=== PATIENT | female | born 1945 | race Caucasian/White ===

== ENCOUNTER 2016-06-16 10:39 | Emergency (ER) | payer MEDICARE, OTHER ==
[2016-06-16] MEDS ORDERED: FEVERALL 650 MG PR STA (10:41)
[2016-06-16] MEDS ORDERED: Sodium Chloride 0.9% 1000 ML 1,000 ML IV STA ×2 (10:41→12:43)
[2016-06-16] MEDS ORDERED: Sodium Chloride 0.9% 1000 ML 1,000 ML ONE ×3 (10:54→14:13)
[2016-06-16] MEDS ORDERED: FEVERALL 650 MG ONE (11:11)
[2016-06-16] MEDS ORDERED: Azactam 1 GM/100 ML D5W 100 ML IV ONE (11:20)
[2016-06-16 11:26] LABS: A-aADO2 98; ARTERIAL BLD GAS O2 SATURATION 97.6 % (95-100); ARTERIAL BLOOD GAS BASE EXCESS -1.4 (-2.0-2.0); ARTERIAL BLOOD GAS FIO2 28 %; ARTERIAL BLOOD GAS PO2 69 mmHg (75-100)
[2016-06-16 11:27] LABS: ALLEN TEST OK? YES
--- NOTE | 2016-06-16 11:28 | ERPHSYRPT ---
- History of Present Illness Source: patient, family (), EMS ([facility] ambulance) Exam Limitations: clinical condition Patient Subjective Stated Complaint: PT BROUGHT IN BY EMS PER EMS THEY WERE CALLED TO SCENE FOR POSSIBLE MEDICATION REACTION STATED THAT WAS RECENLTY WAS PUT ON A CREAM FOR A RASH UNDER HER BREAST PER EMS ON ARRIVAL PT WAS CONFUSED ROOM AIR SAT IN 80'S AND CYANOTIC AROUND THE LIPS. Triage Nursing Assessment: PT PALE CYANTOTIC AROUND THE LIPS PT ORIENTED TO SELF ONLY PT LEFT RECTAL TEMP 107.1 PT EXTREMITIES MOTTLED. DRY MUCUS MEMBRANES NOTED. Physician History: Patient case was discussed with and [facility] ambulance. Patient is intermittently confused and poorly communicating at this time. Patient sought medical provider 2 days ago for infection under her breasts and in the groin area diagnosed as possible yeast and was placed on a cream and anti-infective pills which are assumed to be the Diflucan that we noted. She had a fever at home last night felt poorly which then broke and this morning patient was feeling very warm week and was slightly confused and called EMS at that time with requested transfer to our hospital despite the fact they live only 1 [address] from [facility]. Patient is not known diabetic has a history of previous CABG hypertension and recent findings of carotid vascular disease.emesis 1 this morning with no abdominal pain and did fall on left ankle trying to get out of bed. Timing/Duration: today, day(s) (11,start of infection), worse Associated Symptoms: shortness of breath, diaphoresis, chills, fever, malaise, rash, weakness, other (altered mental status as noted above) Allergies/Adverse Reactions: No Known Drug Allergies Allergy (Unverified 06/16/16 11:09) Home Medications: Aspirin 84 mg PO DAILY 06/16/16 [History] Clonazepam 0.5 mg PO DAILY 06/16/16 [History] Fluconazole 150 mg PO DAILY 06/16/16 [History] Megestrol Acetate 40 mg [Megace 40 MG] 40 mg PO DAILY 06/16/16 [History] Metoprolol Tartrate 50 mg PO DAILY 06/16/16 [History] Oxycodone HCl/Acetaminophen [Percocet 5-325 mg Tablet] 1 ea PO Q4HPRN PRN [History] Pravastatin Sodium 40 mg PO DAILY 06/16/16 [History] Promethazine HCl 25 mg PO UD 06/16/16 [History] Hx Tetanus, Diphtheria Vaccination/Date Given: No (UNKNOWN) - Review of Systems Constitutional: Fever, Chills, Fatigue, Lethargy, Malaise Eyes: No Symptoms Ears, Nose, & Throat: No Symptoms Respiratory: Dyspnea Cardiac: No Symptoms Abdominal/Gastrointestinal: Vomiting (x1 this AM) Genitourinary Symptoms: No Symptoms Musculoskeletal: No Symptoms Skin: Cellulitis, Rash (as noted), Other (as noted HPI) Neurological: Headache, Irritability, Lethargy, Other (as noted) Psychological: No Symptoms Endocrine: No Symptoms Hematologic/Lymphatic: No Symptoms Immunological/Allergic: No Symptoms - Past Medical History Pertinent Past Medical History: Yes Cardiac History: Coronary Artery Disease, High Cholesterol, Hypertension, Myocardial Infarction (MS) Respiratory History: No Pertinent History Endocrine Medical History: No Pertinent History Musculoskeletal History: No Pertinent History GI Medical History: No Pertinent History History: Other (history of left breast cancer status post radiation and lymph node dissection and history of ovarian cancer with one year ago.) Female Reproductive Disorders: Other (as noted above) - Past Surgical History Past Surgical History: Yes Other Surgical History: OPEN HEART SCAR NOTED - Social History Smoking Status: Unknown if ever smoked Drug Use: none Patient Lives Alone: No - Female History Hx Last Menstrual Period: N/A - Nursing Vital Signs Nursing Vital Signs: Initial Vital Signs Temperature 104 F Temperature Source Core Pulse Rate 119 Respiratory Rate 42 Blood Pressure [] 142/93 Pain Intensity 6 - Physical Exam General Appearance: severe distress, obese Eye Exam: PERRL/EOMI Ears, Nose, Throat Exam: pharyngeal erythema, other (DRY) Neck Exam: normal inspection, non-tender, supple, full range of motion Respiratory Exam: diminished breath sounds, prolonged expirations Cardiovascular Exam: regular rate/rhythm, tachycardia, capillary refill <2 sec Gastrointestinal/Abdomen Exam: soft, normal bowel sounds, No tenderness, No distention, No mass, No guarding Pelvic Exam: not done Rectal Exam: deferred Back Exam: normal inspection, normal range of motion, No CVA tenderness Extremity Exam: joint swelling (lEFT ANKLE), tenderness (LEFT ANKLE) Neurologic Exam: disoriented, confusion Skin Exam: rash (marked cellulitis with drainage bilateral memory areas) Lymphatic Exam: No adenopathy, No axilla node tender (L) SpO2 Interpretation: normal SpO2: 96 Oxygen Delivery: Nasal Cannula - Course Nursing assessment & vital signs reviewed: Yes EKG Interpreted by Me: RATE (106), Sinus Tach, Left [place] Deviation, NORMAL INTERVALS, NORMAL QRS, Q-wave (III,aVF,V1), ST Elev (III,aVR), Ischemic ST-T changes (avl,[id number]), Other (ST SEGMENT DEPRESSION DIFFUSE AND ONE LEAD III WITH st SEGMENT ELEVATION NEW COMPARED TO ekg 93112) - Radiology Exams Chest X-ray Interpretation: Reviewed by me, Discussed w/ radiologist (status post sternotomy new cardiomegaly with left effusion an right new basilar infiltrate versus atel) Left Ankle X-ray Interpretation: Reviewed by me, Discussed w/ radiologist, No Fracture, Other (SOFT TISSUE SWELLING) - CT Exams Head CT Interpretation: Discussed w/radiologist, Tele-radiologist Report (LEFT CAUDATE AND INTERNAL CAPSULE REMOTE LACUNAR INFARCTS, NO ACUTE CHANGES) Ordered Tests: Active Orders 24 hr Category Date Time Status Chaitanya Bandage Application -[facility] STAT Care 06/16/16 12:28 Active Civil Engineering Intern STAT Care 06/16/16 10:41 Active Catheter-[place] STAT Care 06/16/16 10:41 Active EKG-ER Only STAT Care 06/16/16 10:55 Active IV Insertion STAT Care 06/16/16 10:41 Active Ice Pack, Apply PRN Care 06/16/16 12:29 Active Oxygen-ED Only NASAL CANNULA 4 lpm Care 06/16/16 10:41 Active Oxygen-ED Only VENTI-MASK 50% Care 06/16/16 14:42 Active Rectal Temperature STAT Care 06/16/16 10:41 Active ANKLE (3 VIEWS) Stat Exams 06/16/16 12:01 Completed CHEST 1 VIEW (PORTABLE) Stat Exams 06/16/16 10:44 Completed HEAD WITHOUT CONTRAST [CT] Stat Exams 06/16/16 12:25 Completed ARTERIAL BLOOD GASES Stat Lab 06/16/16 11:10 Completed BLOOD CULTURE Stat Lab 06/16/16 11:10 Received CBC W DIFF Stat Lab 06/16/16 11:00 Completed CMP Stat Lab 06/16/16 11:00 Completed CULTURE, THROAT Stat Lab 06/16/16 11:05 Received CULTURE,URINE Stat Lab 06/16/16 11:05 Received CULTURE,WOUND Stat Lab 06/16/16 11:05 Received Lactic Acid Urgent Lab 06/16/16 11:10 Completed PROTIME WITH INR Stat Lab 06/16/16 11:33 Completed PTT Stat Lab 06/16/16 11:33 Completed STREP SCREEN-BETA A Stat Lab 06/16/16 11:05 Completed TROPONIN Q3H Lab 06/16/16 11:33 Completed TROPONIN Q3H Lab 06/16/16 14:15 Completed TROPONIN Q3H Lab 06/16/16 17:00 Ordered TROPONIN Q3H Lab 06/16/16 20:00 Ordered TROPONIN Q3H Lab 06/16/16 23:00 Ordered UA W/ MICROSCOPIC Stat Lab 06/16/16 11:05 Completed Medication Summary Discontinued Medications Generic Name Dose Route Start Last Admin Trade Name Freq PRN Reason Stop Dose Admin Acetaminophen 975 mg 06/16/16 10:41 06/16/16 11:16 Feverall 650 Mg AK 06/16/16 10:42 975 mg STAT STA Administration Acetaminophen Confirm 06/16/16 11:11 Feverall 650 Mg Administered 06/16/16 11:12 Dose 1,300 mg .ROUTE .STK-MED ONE Acetaminophen 500 mg 06/16/16 13:29 06/16/16 13:38 Tylenol Extra Strength 500 Mg PO 06/16/16 13:30 500 mg STAT STA Administration Acetaminophen Confirm 06/16/16 13:38 Tylenol Extra Strength 500 Mg Administered 06/16/16 13:39 Dose 500 mg .ROUTE .STK-MED ONE Aspirin 324 mg 06/16/16 12:00 06/16/16 12:17 Baby Aspirin 81 Mg Chew PO 06/16/16 12:01 324 mg STAT ONE Administration Aspirin Confirm 06/16/16 12:11 Baby Aspirin 81 Mg Chew Administered 06/16/16 12:12 Dose 324 mg .ROUTE .STK-MED ONE Fentanyl Citrate 50 mcg 06/16/16 12:00 06/16/16 12:15 Sublimaze 100 Mcg/2 Ml IV 06/16/16 12:01 50 mcg STAT ONE Administration Fentanyl Citrate Confirm 06/16/16 12:13 Sublimaze 100 Mcg/2 Ml Administered 06/16/16 12:14 Dose 100 mcg .ROUTE .STK-MED ONE Hydromorphone HCl 0.5 mg 06/16/16 13:05 06/16/16 13:09 Hydromorphone 1 Mg/Ml Ampule IV 06/16/16 13:06 0.5 mg STAT ONE Administration Hydromorphone HCl Confirm 06/16/16 13:08 Hydromorphone 1 Mg/Ml Ampule Administered 06/16/16 13:09 Dose 1 mg .ROUTE .STK-MED ONE Hydromorphone HCl 0.5 mg 06/16/16 14:23 06/16/16 14:29 Hydromorphone 1 Mg/Ml Ampule IV 06/16/16 14:24 0.5 mg STAT ONE Administration Hydromorphone HCl Confirm 06/16/16 14:26 Hydromorphone 1 Mg/Ml Ampule Administered 06/16/16 14:27 Dose 1 mg .ROUTE .STK-MED ONE Sodium Chloride 1,000 mls @ 999 mls/hr 06/16/16 10:41 06/16/16 11:08 Sodium Chloride 0.9% 1000 Ml IV 06/16/16 11:41 999 mls/hr .Q1H1M STA Administration Sodium Chloride Confirm 06/16/16 10:54 Sodium Chloride 0.9% 1000 Ml Administered 06/16/16 10:55 Dose 1,000 mls @ ud .ROUTE .STK-MED ONE Aztreonam 100 mls @ 100 mls/hr 06/16/16 11:20 06/16/16 12:12 Azactam 1 Gm/100 Ml D5w IV 06/16/16 12:19 100 mls/hr STAT ONE Administration Vancomycin HCl 250 mls @ 250 mls/hr 06/16/16 11:30 06/16/16 12:06 Vancomycin 1gm/ Ns 250ml IV 06/16/16 13:29 250 mls/hr Q1H MITCHEL Administration Vancomycin HCl Confirm 06/16/16 11:44 Vancomycin 1gm/ Ns 250ml Administered 06/16/16 11:45 Dose 250 mls @ ud IV .STK-MED ONE Vancomycin HCl Confirm 06/16/16 12:05 Vancomycin 1gm/ Ns 250ml Administered 06/16/16 12:06 Dose 250 mls @ ud IV .STK-MED ONE Sodium Chloride 1,000 mls @ 999 mls/hr 06/16/16 12:43 06/16/16 13:05 Sodium Chloride 0.9% 1000 Ml IV 06/16/16 13:43 999 mls/hr .Q1H1M STA Administration Sodium Chloride Confirm 06/16/16 12:51 Sodium Chloride 0.9% 1000 Ml Administered 06/16/16 12:52 Dose 1,000 mls @ ud .ROUTE .STK-MED ONE Sodium Chloride 1,000 mls @ 150 mls/hr 06/16/16 14:00 06/16/16 14:24 Sodium Chloride 0.9% 1000 Ml IV 07/16/16 13:59 150 mls/hr .Q6H40M MITCHEL Administration Clindamycin HCl/Dextrose 50 mls @ 100 mls/hr 06/16/16 14:09 06/16/16 14:18 Clindamycin-D5w 900 Mg/50 Ml IV 06/16/16 14:38 100 mls/hr STAT ONE Administration Clindamycin HCl/Dextrose Confirm 06/16/16 14:12 Clindamycin-D5w 900 Mg/50 Ml Administered 06/16/16 14:13 Dose 50 mls @ ud IV .STK-MED ONE Sodium Chloride Confirm 06/16/16 14:13 Sodium Chloride 0.9% 1000 Ml Administered 06/16/16 14:14 Dose 1,000 mls @ ud .ROUTE .STK-MED ONE Oseltamivir Phosphate 75 mg 06/16/16 13:27 06/16/16 13:39 Tamiflu 75mg Capsule PO 06/16/16 13:28 75 mg STAT ONE Administration Oseltamivir Phosphate Confirm 06/16/16 13:36 Tamiflu 75mg Capsule Administered 06/16/16 13:37 Dose 75 mg PO .STK-MED ONE Lab/Rad Data: Laboratory Result Diagrams 06/16/16 11:00 06/16/16 11:00 Laboratory Results 06/16/16 06/16/16 06/16/16 Range/Units 14:15 13:30 11:33 WBC (4.0-10.5) K/mm3 RBC (4.1-5.4) M/mm3 Hgb (12.0-16.0) gm/dl Hct (35-47) % MCV (78-100) fl MCH (26-32) pg MCHC (32-36) g/dl RDW (11.5-14.0) % Plt Count (150-450) K/mm3 MPV (6-9.5) fl Gran % (36.0-66.0) % Lymphocytes % (24.0-44.0) % Monocytes % (0.0-12.0) % Eosinophils % (0.00-5.0) % Basophils % (0.0-0.4) % Basophils # (0-0.4) INR (0.8-3.0) PTT (25.3-37.0) SECONDS Puncture Site pCO2 (35-45) mmHg pO2 (75-100) mmHg Base Excess (-2.0-2.0) O2 Saturation (94-100) g/dF ABG pH (7.35-7.45) ABG HCO3 (22-28) ABG O2 Sat (Measured) (95-100) % [place] Test A-a Gradient a/A Ratio Hemoglobin Carboxyhemoglobin (0.0-6.9) % THgb Methemoglobin (1.4-1.5) % Temperature C POC O2 Flow Rate % Sodium (136-145) mEq/L Potassium (3.5-5.1) mEq/L Chloride (98-107) mEq/L Carbon Dioxide (21-32) mEq/L Anion Gap (5-15) MEQ/L BUN (9-20) mg/dL Creatinine (0.55-1.30) mg/dl Estimated GFR ML/MIN Glucose (70-110) MG/DL Lactic Acid (0.4-2.0) Calcium (8.5-10.1) mg/dL Total Bilirubin (0.2-1.0) mg/dL AST (15-37) U/L ALT (12-78) U/L Alkaline Phosphatase (46-116) U/L Troponin I 0.044 < 0.017 (0.000-0.056) ng/ml Serum Total Protein (6.4-8.2) gm/dL Albumin (3.4-5.0) g/dL Ur Collection Type Urine Color (YELLOW) Urine Appearance (CLEAR) Urine pH (5-6) Ur Specific [place] (1.005-1.025) Urine Protein (Negative) Urine Glucose (UA) (NEGATIVE) mg/dL Urine Ketones (NEGATIVE) Urine Nitrite (NEGATIVE) Urine Bilirubin (NEGATIVE) Urine Urobilinogen (0-1) mg/dL Urine WBC (Auto) (NEGATIVE) Urine RBC (Auto) (0-5) Joe/ul Urine Microscopic RBC (0-2) /HPF Urine Microscopic WBC (0-5) /HPF Ur Epithelial Cells (FEW) /HPF Amorphous Crystals (NEGATIVE) /HPF Urine Bacteria (NEGATIVE) /HPF Hyaline Casts (0-2) /LPF Urine Mucus (NEGATIVE) /HPF Streptococcus Screen (Negative) Resp Infection Panel NEGATIVE (Negative) Specimen Received 06/16/16 06/16/16 06/16/16 Range/Units 11:33 11:10 11:10 WBC (4.0-10.5) K/mm3 RBC (4.1-5.4) M/mm3 Hgb (12.0-16.0) gm/dl Hct (35-47) % MCV (78-100) fl MCH (26-32) pg MCHC (32-36) g/dl RDW (11.5-14.0) % Plt Count (150-450) K/mm3 MPV (6-9.5) fl Gran % (36.0-66.0) % Lymphocytes % (24.0-44.0) % Monocytes % (0.0-12.0) % Eosinophils % (0.00-5.0) % Basophils % (0.0-0.4) % Basophils # (0-0.4) INR 1.18 (0.8-3.0) PTT 29.2 (25.3-37.0) SECONDS Puncture Site RIGHT BRACHIAL pCO2 26 L (35-45) mmHg pO2 69 L (75-100) mmHg Base Excess -1.4 (-2.0-2.0) O2 Saturation 94.3 (94-100) g/dF ABG pH 7.50 H (7.35-7.45) ABG HCO3 20.3 L (22-28) ABG O2 Sat (Measured) 97.6 (95-100) % D[place]las Test YES A-a Gradient 98 a/A Ratio 0.41 Hemoglobin 13.7 Carboxyhemoglobin 2.2 (0.0-6.9) % THgb Methemoglobin 1.2 L (1.4-1.5) % Temperature 37.0 C POC O2 Flow Rate 28 % Sodium (136-145) mEq/L Potassium 3.5 (3.5-5.1) mEq/L Chloride (98-107) mEq/L Carbon Dioxide (21-32) mEq/L Anion Gap (5-15) MEQ/L BUN (9-20) mg/dL Creatinine (0.55-1.30) mg/dl Estimated GFR ML/MIN Glucose (70-110) MG/DL Lactic Acid 1.7 (0.4-2.0) Calcium (8.5-10.1) mg/dL Total Bilirubin (0.2-1.0) mg/dL AST (15-37) U/L ALT (12-78) U/L Alkaline Phosphatase (46-116) U/L Troponin I (0.000-0.056) ng/ml Serum Total Protein (6.4-8.2) gm/dL Albumin (3.4-5.0) g/dL Ur Collection Type Urine Color (YELLOW) Urine Appearance (CLEAR) Urine pH (5-6) Ur Specific [place] (1.005-1.025) Urine Protein (Negative) Urine Glucose (UA) (NEGATIVE) mg/dL Urine Ketones (NEGATIVE) Urine Nitrite (NEGATIVE) Urine Bilirubin (NEGATIVE) Urine Urobilinogen (0-1) mg/dL Urine WBC (Auto) (NEGATIVE) Urine RBC (Auto) (0-5) Joe/ul Urine Microscopic RBC (0-2) /HPF Urine Microscopic WBC (0-5) /HPF Ur Epithelial Cells (FEW) /HPF Amorphous Crystals (NEGATIVE) /HPF Urine Bacteria (NEGATIVE) /HPF Hyaline Casts (0-2) /LPF Urine Mucus (NEGATIVE) /HPF Streptococcus Screen (Negative) Resp Infection Panel (Negative) Specimen Received 06/16/16 06/16/16 06/16/16 Range/Units 11:05 11:05 11:00 WBC (4.0-10.5) K/mm3 RBC (4.1-5.4) M/mm3 Hgb (12.0-16.0) gm/dl Hct (35-47) % MCV (78-100) fl MCH (26-32) pg MCHC (32-36) g/dl RDW (11.5-14.0) % Plt Count (150-450) K/mm3 MPV (6-9.5) fl Gran % (36.0-66.0) % Lymphocytes % (24.0-44.0) % Monocytes % (0.0-12.0) % Eosinophils % (0.00-5.0) % Basophils % (0.0-0.4) % Basophils # (0-0.4) INR (0.8-3.0) PTT (25.3-37.0) SECONDS Puncture Site pCO2 (35-45) mmHg pO2 (75-100) mmHg Base Excess (-2.0-2.0) O2 Saturation (94-100) g/dF ABG pH (7.35-7.45) ABG HCO3 (22-28) ABG O2 Sat (Measured) (95-100) % [place] Test A-a Gradient a/A Ratio Hemoglobin Carboxyhemoglobin (0.0-6.9) % THgb Methemoglobin (1.4-1.5) % Temperature C POC O2 Flow Rate % Sodium 140 (136-145) mEq/L Potassium 4.5 (3.5-5.1) mEq/L Chloride 102 (98-107) mEq/L Carbon Dioxide 24.8 (21-32) mEq/L Anion Gap 17.9 H (5-15) MEQ/L BUN 17 (9-20) mg/dL Creatinine 1.25 (0.55-1.30) mg/dl Estimated GFR 45 ML/MIN Glucose 143 H (70-110) MG/DL Lactic Acid (0.4-2.0) Calcium 9.6 (8.5-10.1) mg/dL Total Bilirubin 1.0 (0.2-1.0) mg/dL AST 28 (15-37) U/L ALT 17 (12-78) U/L Alkaline Phosphatase 55 (46-116) U/L Troponin I (0.000-0.056) ng/ml Serum Total Protein 7.2 (6.4-8.2) gm/dL Albumin 3.6 (3.4-5.0) g/dL Ur Collection Type CLEAN CATCH Urine Color ORANGE (YELLOW) Urine Appearance CLOUDY (CLEAR) Urine pH 5.5 (5-6) Ur Specific [place] >=1.030 (1.005-1.025) Urine Protein 100 (Negative) Urine Glucose (UA) NEGATIVE (NEGATIVE) mg/dL Urine Ketones TRACE (NEGATIVE) Urine Nitrite NEGATIVE (NEGATIVE) Urine Bilirubin SMALL (NEGATIVE) Urine Urobilinogen 0.2 (0-1) mg/dL Urine WBC (Auto) NEGATIVE (NEGATIVE) Urine RBC (Auto) MODERATE (0-5) Joe/ul Urine Microscopic RBC 2-5 (0-2) /HPF Urine Microscopic WBC 0-2 (0-5) /HPF Ur Epithelial Cells MODERATE (FEW) /HPF Amorphous Crystals MODERATE (NEGATIVE) /HPF Urine Bacteria MODERATE (NEGATIVE) /HPF Hyaline Casts 2-5 (0-2) /LPF Urine Mucus SLIGHT (NEGATIVE) /HPF Streptococcus Screen NEGATIVE (Negative) Resp Infection Panel (Negative) Specimen Received [id number] 06/16/16 Range/Units 11:00 WBC 11.2 H (4.0-10.5) K/mm3 RBC 4.23 (4.1-5.4) M/mm3 Hgb 13.8 (12.0-16.0) gm/dl Hct 41.4 (35-47) % MCV 97.9 (78-100) fl MCH 32.6 H (26-32) pg MCHC 33.3 (32-36) g/dl RDW 12.4 (11.5-14.0) % Plt Count 193 (150-450) K/mm3 MPV 10.6 H (6-9.5) fl Gran % 88.2 H (36.0-66.0) % Lymphocytes % 7.6 L (24.0-44.0) % Monocytes % 4.0 (0.0-12.0) % Eosinophils % 0.0 (0.00-5.0) % Basophils % 0.2 (0.0-0.4) % Basophils # 0.02 (0-0.4) INR (0.8-3.0) PTT (25.3-37.0) SECONDS Puncture Site pCO2 (35-45) mmHg pO2 (75-100) mmHg Base Excess (-2.0-2.0) O2 Saturation (94-100) g/dF ABG pH (7.35-7.45) ABG HCO3 (22-28) ABG O2 Sat (Measured) (95-100) % D[place] Test A-a Gradient a/A Ratio Hemoglobin Carboxyhemoglobin (0.0-6.9) % THgb Methemoglobin (1.4-1.5) % Temperature C POC O2 Flow Rate % Sodium (136-145) mEq/L Potassium (3.5-5.1) mEq/L Chloride (98-107) mEq/L Carbon Dioxide (21-32) mEq/L Anion Gap (5-15) MEQ/L BUN (9-20) mg/dL Creatinine (0.55-1.30) mg/dl Estimated GFR ML/MIN Glucose (70-110) MG/DL Lactic Acid (0.4-2.0) Calcium (8.5-10.1) mg/dL Total Bilirubin (0.2-1.0) mg/dL AST (15-37) U/L ALT (12-78) U/L Alkaline Phosphatase (46-116) U/L Troponin I (0.000-0.056) ng/ml Serum Total Protein (6.4-8.2) gm/dL Albumin (3.4-5.0) g/dL Ur Collection Type Urine Color (YELLOW) Urine Appearance (CLEAR) Urine pH (5-6) Ur Specific [place] (1.005-1.025) Urine Protein (Negative) Urine Glucose (UA) (NEGATIVE) mg/dL Urine Ketones (NEGATIVE) Urine Nitrite (NEGATIVE) Urine Bilirubin (NEGATIVE) Urine Urobilinogen (0-1) mg/dL Urine WBC (Auto) (NEGATIVE) Urine RBC (Auto) (0-5) Joe/ul Urine Microscopic RBC (0-2) /HPF Urine Microscopic WBC (0-5) /HPF Ur Epithelial Cells (FEW) /HPF Amorphous Crystals (NEGATIVE) /HPF Urine Bacteria (NEGATIVE) /HPF Hyaline Casts (0-2) /LPF Urine Mucus (NEGATIVE) /HPF Streptococcus Screen (Negative) Resp Infection Panel (Negative) Specimen Received - Progress Progress: improved, re-examined Progress Note: 06/16/16 14:07Case discussed with Dr. Edwards from [place] [facility] who except patient in transfer recommends clindamycin 900 mg IV piggyback and transfer as soon as possible which is agreeable to the family and according to the request. Unfortunately air transport unavailable due to weather conditions. Discussed with : Lara Will see patient in: other (Recommends transfer due to patient critical status with continued fever) - Departure Time of Disposition: 14:10 Departure Disposition: Transfer Clinical Impression: Sepsis affecting skin, Fever and chills, Hypoxemia Pneumonia Qualifiers: Pneumonia type: due to unspecified organism Laterality: right Lung location: lower lobe of lung Qualified Code(s): J18.1 - Lobar pneumonia, unspecified organism Altered mental status, unspecified Qualifiers: Altered mental status type: disorientation Qualified Code(s): R41.0 - Disorientation, unspecified Condition: Critical Critical Care Time: Yes Critical Care Time(excluding separately billable procedures): 75-104 minutes, __ _ minutes (75) Referrals: MELIDA STUART [Primary Care Provider] -
[2016-06-16 11:29] LABS: BASOPHIL % 0.2 % (0.0-0.4); Granulocytes % 88.2 % (36.0-66.0); Lymphocytes % 7.6 % (24.0-44.0); Mean Cell Volume 97.9 fl (78-100); Mean Corpuscular Hemoglobin 32.6 pg (26-32); Mean Platelet Volume 10.6 fl (6-9.5); Platelet Count 193 K/mm3 (150-450); Red Blood Count 4.23 M/mm3 (4.1-5.4); Red Cell Distribution Width 12.4 % (11.5-14.0); White Blood Count 11.2 K/mm3 (4.0-10.5)
[2016-06-16 11:36] LABS: COMPLETE URINE MICROSCOPIC? YES; Collection Type CLEAN CATCH; Ph 5.5 (5-6)
[2016-06-16 11:42] LABS: Mucus SLIGHT /HPF (NEGATIVE); WBC 0-2 /HPF (0-5)
[2016-06-16 11:43] LABS: ALBUMIN 3.6 g/dL (3.4-5.0); ANION GAP 17.9 MEQ/L (5-15); Carbon Dioxide 24.8 mEq/L (21-32); Potassium 4.5 mEq/L (3.5-5.1); Total Protein 7.2 gm/dL (6.4-8.2)
[2016-06-16 11:43] LABS: Bacteria MODERATE /HPF (NEGATIVE); Epithelial Cells MODERATE /HPF (FEW)
[2016-06-16] MEDS ORDERED: Vancomycin 1GM/ Ns 250ML*** 250 ML IV ONE ×2 (11:44→12:05)
[2016-06-16] MEDS: Vancomycin 1GM/ Ns 250ML*** 250 ML IV SCH ×2 (11:52→12:06)
[2016-06-16 11:53] LABS: INR 1.18 (0.8-3.0); PROTIME 13.1 SECONDS (9.95-12.35)
[2016-06-16 11:55] LABS: PTT 29.2 SECONDS (25.3-37.0)
--- NOTE | 2016-06-16 11:58 | XRAY ---
Indication: Fever and short of breath. Altered mental status. Comparison: September 08, 2006 Portable chest less inflated today. Heart is now enlarged obscuring a good portion of the left lung. Again previous CABG surgery. New mild central vascular prominence and small left effusion. Also new minimal right base infiltrate versus atelectasis. Bony thorax intact again with mild osteopenia and degenerative changes. Impression: New cardiomegaly with central vascular prominence and small left effusion concerning for cardiac decompensation. New right base infiltrate/atelectasis. Superimposed pneumonia not completely excluded.
[2016-06-16] MEDS ORDERED: SUBLIMAZE 100 MCG/2 ML IV ONE (12:00)
[2016-06-16] MEDS ORDERED: BABY ASPIRIN 81 MG CHEW PO ONE (12:00)
[2016-06-16] MEDS ORDERED: BABY ASPIRIN 81 MG CHEW ONE (12:11)
[2016-06-16] MEDS ORDERED: SUBLIMAZE 100 MCG/2 ML ONE (12:13)
--- NOTE | 2016-06-16 12:19 | XRAY ---
Indication: Pain and swelling following twisting injury. Comparison: None 3 views of the left ankle demonstrates soft tissue swelling and lower leg vascular clips. No other bony, articular, or soft tissue abnormalities.
--- NOTE | 2016-06-16 12:58 | XRAY ---
Indication: Altered mental status. Multiple contiguous axial images obtained through the head without contrast. Comparison: None Study slightly degraded by motion artifact. Remote lacunar infarcts of the left caudate head and left internal capsule. No acute intracranial hemorrhage, abnormal extra-axial fluid question, or mass effect. Fourth ventricle is midline without hydrocephalus. Briseno-white matter differentiation preserved. Tiny interhemispheric lipomas. Bony calvarium intact. Mild mucosal thickening of both ethmoid sinuses. Mastoid air cells are clear. Impression: Left caudate and left internal capsule remote lacunar infarcts. No acute intracranial abnormalities. Incidental paranasal sinus disease. CT DI 58.58
[2016-06-16] MEDS ORDERED: Hydromorphone 1 mg/ml Ampule IV ONE ×2 (13:05→14:23)
[2016-06-16] MEDS ORDERED: Hydromorphone 1 mg/ml Ampule ONE ×2 (13:08→14:26)
[2016-06-16] MEDS ORDERED: Tamiflu 75MG Capsule PO ONE ×2 (13:27→13:36)
[2016-06-16] MEDS ORDERED: TYLENOL EXTRA STRENGTH 500 MG PO STA (13:29)
[2016-06-16] MEDS ORDERED: TYLENOL EXTRA STRENGTH 500 MG ONE (13:38)
[2016-06-16] MEDS ORDERED: Sodium Chloride 0.9% 1000 ML 1,000 ML IV SCH (14:00)
[2016-06-16] MEDS ORDERED: CLINDAMYCIN-D5W 900 MG/50 ML*** 50 ML IV ONE ×2 (14:09→14:12)
[2016-06-16 15:01] VITALS: BP 142/93; PULSE 119
[2016-06-16 15:22] VITALS: O2SAT 96
== END 2016-06-16 15:03 | disposition short-term general hospital (02) ==
LOC: ED 10:39
DX: J18.1 Lobar pneumonia, unspecified organism (principal); R41.0 Disorientation, unspecified; A41.9 Sepsis, unspecified organism; R50.9 Fever, unspecified; R09.02 Hypoxemia
CPT/HCPCS: 93041; 96374; 96365; 96366; 99285; 99291 ×2; 36000; 51702; 99292; 96360; 96361; 96367; 96368; 93005; 87040; 81000; 85610; 85730; 36415; 87430; 87070 ×2; 85025; 87077; 80053; 84484; 87086; 87631; 71010; 73610; 70450; 82803; 82375; 36600; 83605; P9612; 96375; 96376; J1170; J3010; J3370